=== PATIENT | female | born 1950 | race Caucasian/White ===

== ENCOUNTER 2024-12-31 22:51 | Inpatient (IN) | payer MEDICARE, OTHER ==
[~2024-12-31] VITALS: Ht 154.9 cm; Wt 90.7 kg
[2024-12-31 23:58] LABS: BASOPHILS # (AUTO) 0.1 K/uL (0.0-0.2); BASOPHILS % (AUTO) 1.5 % (0.0-2.0); EOSINOPHILS # (AUTO) 0.2 K/uL (0.0-0.7); EOSINOPHILS % (AUTO) 4.1 % (0.0-6.0); HEMATOCRIT 50 % (33-45); HEMOGLOBIN 16.6 g/dL (11.5-14.8); LYMPHOCYTES # (AUTO) 1.6 K/uL (0.8-4.8); LYMPHOCYTES % (AUTO) 36.3 % (20.0-44.0); MEAN CORPUSCULAR HEMOGLOBIN 32 PG (26.0-33.0); MEAN CORPUSCULAR HGB CONC 33 g/dl (31.0-36.0); MEAN CORPUSCULAR VOLUME 95 fL (82-100); MONOCYTES # (AUTO) 0.7 K/uL (0.1-1.30); NEUTROPHILS # (AUTO) 1.9 K/uL (1.8-8.9); NEUTROPHILS % (AUTO) 42.1 % (43.0-81.0); PLATELET COUNT (AUTO) 314 K/uL (150-450); RED BLOOD CELL COUNT(AUTO) 5.23 MIL/uL (4.0-5.2); RED CELL DISTRIBUTION WIDTH 15.4 % (11.5-15.0); WHITE BLOOD COUNT (AUTO) 4.5 K/uL (4.3-11.0)
[2025-01-01 00:09] LABS: CALCIUM, SERUM 9.6 mg/dL (8.5-10.1); CARBON DIOXIDE 24 mmol/L (21-32); CHLORIDE 105 mmol/L (98-107); CREATININE 0.9 mg/dL (0.6-1.3); GLUCOSE 107 mg/dL (74-106); POTASSIUM 3.5 mmol/L (3.5-5.1); SODIUM SERUM 143 mmol/L (136-145); UREA NITROGEN, BLOOD 12 mg/dL (7-18)
[2025-01-01 00:15] LABS: ALANINE AMINOTRANSFERASE 27 U/L (12-78); ALBUMIN 3.1 g/dL (3.4-5.0); ALCOHOL, BLOOD < 3 mg/dL (0-10); ALKALINE PHOSPHATASE 68 U/L (46-116); ASPARTATE AMINOTRANSFERASE 26 U/L (15-37); BILIRUBIN,DIRECT 0.3 mg/dL (0.0-0.2); BILIRUBIN,TOTAL 0.7 mg/dL (0.2-1.0); TOTAL PROTEIN, SERUM 8.1 g/dL (6.4-8.2)
[2025-01-01 00:16] LABS: ACETAMINOPHEN <10 ug/ml (10-30); SALICYLATE 2.7 mg/dL (2.8-20.0)
[2025-01-01 00:43] LABS: LYMPHOCYTES % (MANUAL) 36 % (16-48)
[2025-01-01 00:44] LABS: EOSINOPHILS % (MANUAL) 2 % (0-4); MONOCYTES % (MANUAL) 13 % (0-11.0); NEUTROPHILS % (MANUAL) 42 (42-76)
[2025-01-01 00:45] LABS: PLATELET ESTIMATE ADEQUATE
[2025-01-01 01:01] LABS: APPEARANCE,URINE SLIGHTLY CLOUDY (CLEAR); BILIRUBIN,URINE 2+ (NEGATIVE); BLOOD, URINE TRACE Ery/uL (NEGATIVE); COLOR,URINE DARK YELLOW (YELLOW); KETONES,URINE 1+ mg/dL (NEGATIVE); LEUKOCYTE ESTERASE ,URINE 2+ (NEGATIVE); NITRITE, URINE NEGATIVE (NEGATIVE); PROTEIN,URINE TRACE mg/dl (NEGATIVE); UGLUCOSE NEGATIVE (NEGATIVE)
[2025-01-01 01:09] LABS: ADD URINE CULTURE YES; BACTERIA,URINE Many /HPF (None Seen); WBC,URINE 81-100 /HPF (0-3)
[2025-01-01 01:10] LABS: SQUAMOUS EPITHELIAL CELL,UR Many /HPF (None Seen)
[2025-01-01 01:11] LABS: AMPHETAMINE, URINE NEGATIVE (NEGATIVE); BARBITURATE, URINE NEGATIVE (NEGATIVE); BENZODIAZEPINE, URINE NEGATIVE (NEGATIVE); CANNABINOID, URINE NEGATIVE (NEGATIVE); COCCAINE, URINE NEGATIVE (NEGATIVE); OPIATE, URINE NEGATIVE (NEGATIVE); PHENCYCLIDINE SCREEN,URINE NEGATIVE (NEGATIVE)
[2025-01-01 01:12] LABS: CALCIUM OXALATE CRYSTALS,UR Rare /HPF (None Seen)
[2025-01-01 01:14] LABS: MUCUS,URINE Many /LPF (None Seen)
[2025-01-01] MEDS ORDERED: NITROFURANTOIN/MONOHYDRATE MACROCRYSTALS 100 MG CAPSULE ONE (01:57)
[2025-01-01] MEDS: NITROFURANTOIN/MONOHYDRATE MACROCRYSTALS 100 MG CAPSULE PO ONE (02:02)
[2025-01-01] MEDS ORDERED: QUET25TA PO (03:17)
[2025-01-01] MEDS ORDERED: ASCO500C18 PO (03:17)
[2025-01-01] MEDS ORDERED: ERGO500040 PO (03:17)
[2025-01-01] MEDS ORDERED: MIRT7.5T10 PO (03:17)
[2025-01-01] MEDS ORDERED: MULT-213 PO (03:17)
[2025-01-01] MEDS ORDERED: AMIN30LI2 PO (03:17)
[2025-01-01] MEDS ORDERED: AMLO-213 PO (03:17)
[2025-01-01] MEDS ORDERED: ZOLPIDEM TARTRATE 5 MG TABLET PO PRN ×2 (04:00)
[2025-01-01] MEDS ORDERED: ACETAMINOPHEN 325 MG TABLET PO PRN (04:00)
[2025-01-01] MEDS ORDERED: MAGNESIUM HYDROXIDE 30 ML UDC PO PRN (04:00)
[2025-01-01] MEDS ORDERED: MAG HYDROX/AL HYDROX/SIMETH 30 ML UDC PO PRN (04:00)
[2025-01-01] MEDS: BLOOD SUGAR DIAGNOSTIC 1 EACH STRIP IN ONE (04:31)
[2025-01-01] MEDS ORDERED: Z GUARD REMEDY 4 OZ OINT TP PRN (05:00)
[2025-01-01 08:00] VITALS: BP 144/50; TEMP 97.9; O2SAT 96
[2025-01-01] MEDS: ENSURE ENLIVE CHOC 237 ML CAN PO SCH (09:26)
[2025-01-01] MEDS: AMLODIPINE BESYLATE 10 MG TABLET PO SCH (14:30)
[2025-01-01] MEDS: SULFAMETH/TRIMETH 800/160 MG 1 UDTAB TABLET PO SCH (14:30)
[2025-01-01 16:00] VITALS: BP 124/68; TEMP 97.9; O2SAT 94
[2025-01-02] MEDS: DIVALPROEX SODIUM 125 MG TABLET.DR PO SCH (08:45)
[2025-01-02] MEDS: ASCORBIC ACID 500 MG TABLET PO SCH (08:46)
[2025-01-02] MEDS: OLANZAPINE 2.5 MG TABLET PO SCH ×2 (08:46→21:00)
[2025-01-02] MEDS: MULTIVIT W/MINERALS 1 TAB TABLET PO SCH (08:46)
[2025-01-03] MEDS ORDERED: CEFTRIAXONE 1 G VIAL IM SCH (14:00)
[2025-01-03] MEDS: CEFTRIAXONE 1 G VIAL IM SCH (16:08)
[2025-01-04 08:00] VITALS: BP 136/67; TEMP 97.8; O2SAT 97
[2025-01-04 16:00] VITALS: BP 125/64; TEMP 97.8; O2SAT 99
[2025-01-04] MEDS: OLANZAPINE 2.5 MG TABLET PO ONE (18:15)
[2025-01-04] MEDS: OLANZAPINE 10 MG VIAL IM PRN (18:26)
[2025-01-04] MEDS: OLANZAPINE 10 MG VIAL IM ONE (18:27)
[2025-01-04] MEDS: OLANZAPINE 2.5 MG TABLET PO SCH (21:00)
[2025-01-05 08:00] VITALS: BP 131/80; TEMP 98.7; O2SAT 98
[2025-01-05 16:00] VITALS: BP 103/49; TEMP 97.8; O2SAT 97
[2025-01-05] MEDS: OLANZAPINE 2.5 MG TABLET PO SCH (20:33)
[2025-01-06 08:00] VITALS: BP 126/61; TEMP 97.9; O2SAT 96
[2025-01-06] MEDS: OLANZAPINE 10 MG VIAL IM PRN (10:10)
[2025-01-06 16:00] VITALS: BP 128/60; TEMP 98.1; O2SAT 96
[2025-01-06 20:00] VITALS: BP 118/73; TEMP 98.8; O2SAT 95
[2025-01-06] MEDS: MIRTAZAPINE SOLUTAB 15 MG/UDTABLET TAB.RAPDIS PO SCH (21:02)
[2025-01-07 08:00] VITALS: BP 114/76; TEMP 97.8; O2SAT 98
[2025-01-07 16:00] VITALS: BP 120/77; TEMP 98; O2SAT 96
[2025-01-07 20:00] VITALS: BP 119/76; TEMP 98; O2SAT 95
[2025-01-07] MEDS: OLANZAPINE 2.5 MG TABLET PO SCH (20:46)
[2025-01-07] MEDS: OLANZAPINE 10 MG VIAL IM PRN (20:47)
[2025-01-08 08:00] VITALS: BP 148/67; TEMP 97.8; O2SAT 96
[2025-01-08 16:00] VITALS: BP 108/66; TEMP 98.7; O2SAT 94
[2025-01-09 08:00] VITALS: BP 106/78; TEMP 97.6; O2SAT 94
[2025-01-09 16:00] VITALS: BP 95/65; TEMP 98.3; O2SAT 98
[2025-01-10 08:00] VITALS: BP 119/79; TEMP 98.6; O2SAT 97
[2025-01-10 15:44] VITALS: BP 114/74; TEMP 98.6; O2SAT 98
[2025-01-10] MEDS: OLANZAPINE 2.5 MG TABLET PO SCH (21:00)
[2025-01-10] MEDS: OLANZAPINE 10 MG VIAL IM PRN (21:49)
[2025-01-11 08:00] VITALS: BP 114/78; TEMP 97.8; O2SAT 98
[2025-01-11 16:00] VITALS: BP 99/59; TEMP 98.3; O2SAT 96
[2025-01-12 16:28] VITALS: BP 92/67; TEMP 98.6; O2SAT 97
[2025-01-12 18:45] LABS: BASOPHILS % (AUTO) 0.7 % (0.0-2.0); EOSINOPHILS # (AUTO) 0.3 K/uL (0.0-0.7); EOSINOPHILS % (AUTO) 5.9 % (0.0-6.0); HEMATOCRIT 43 % (33-45); HEMOGLOBIN 14.8 g/dL (11.5-14.8); LYMPHOCYTES # (AUTO) 1.5 K/uL (0.8-4.8); LYMPHOCYTES % (AUTO) 30.1 % (20.0-44.0); MEAN CORPUSCULAR HEMOGLOBIN 33 PG (26.0-33.0); MEAN CORPUSCULAR HGB CONC 34 g/dl (31.0-36.0); MEAN CORPUSCULAR VOLUME 95 fL (82-100); MONOCYTES # (AUTO) 0.9 K/uL (0.1-1.30); MONOCYTES % (AUTO) 17.5 % (2.0-12.0); NEUTROPHILS # (AUTO) 2.3 K/uL (1.8-8.9); NEUTROPHILS % (AUTO) 45.8 % (43.0-81.0); PLATELET COUNT (AUTO) 260 K/uL (150-450); RED BLOOD CELL COUNT(AUTO) 4.52 MIL/uL (4.0-5.2); RED CELL DISTRIBUTION WIDTH 15.5 % (11.5-15.0)
[2025-01-12 18:59] LABS: CALCIUM, SERUM 8.7 mg/dL (8.5-10.1); CREATININE 1.1 mg/dL (0.6-1.3); POTASSIUM 3.4 mmol/L (3.5-5.1)
[2025-01-12 20:19] LABS: LYMPHOCYTES % (MANUAL) 37 % (16-48); MONOCYTES % (MANUAL) 11 % (0-11.0); NEUTROPHILS % (MANUAL) 46 (42-76)
[2025-01-12 20:20] LABS: EOSINOPHILS % (MANUAL) 6 % (0-4); PLATELET ESTIMATE ADEQUATE
[2025-01-12] MEDS: OLANZAPINE 10 MG VIAL IM ONE (22:18)
[2025-01-13 07:33] LABS: ALBUMIN 2.5 g/dL (3.4-5.0); BILIRUBIN,TOTAL 0.6 mg/dL (0.2-1.0); CALCIUM, SERUM 8.8 mg/dL (8.5-10.1); CREATININE 0.9 mg/dL (0.6-1.3); POTASSIUM 3.3 mmol/L (3.5-5.1); TOTAL PROTEIN, SERUM 6.9 g/dL (6.4-8.2)
[2025-01-13 08:00] VITALS: BP 100/60; TEMP 98; O2SAT 98
[2025-01-13] MEDS: POTASSIUM CHLORIDE 20 MEQ TAB.PRT.SR PO SCH (10:00)
[2025-01-13] MEDS: OLANZAPINE 10 MG VIAL IM ONE ×2 (10:53→22:46)
[2025-01-13 16:00] VITALS: BP 93/62; TEMP 97.7; O2SAT 98
[2025-01-13 20:00] VITALS: BP 100/72; TEMP 97.7; O2SAT 95
[2025-01-13 20:52] VITALS: BP 100/72; TEMP 97.7; O2SAT 95
[2025-01-14 08:00] VITALS: BP 112/75; TEMP 97.7; O2SAT 96
[2025-01-14 08:09] LABS: CALCIUM, SERUM 9.1 mg/dL (8.5-10.1); CREATININE 0.9 mg/dL (0.6-1.3); MAGNESIUM 2.2 mg/dL (1.8-2.4); PHOSPHORUS 4.5 mg/dL (2.5-4.9); POTASSIUM 3.8 mmol/L (3.5-5.1)
[2025-01-14 16:00] VITALS: BP 119/76; TEMP 97.6; O2SAT 98
[2025-01-14 20:06] VITALS: BP 105/76; TEMP 97.6; O2SAT 100
[2025-01-14] MEDS: OLANZAPINE 10 MG VIAL IM ONE (22:40)
[2025-01-15 08:00] VITALS: BP 120/88; TEMP 97.9; O2SAT 96
[2025-01-15 10:09] VITALS: BP 98/77; TEMP 97.8; O2SAT 96
[2025-01-15] MEDS: OLANZAPINE 10 MG VIAL IM ONE (10:09)
[2025-01-15 16:00] VITALS: BP 110/50; TEMP 98; O2SAT 98
[2025-01-15 20:21] VITALS: BP 132/81; TEMP 98.3; O2SAT 96
[2025-01-16 08:00] VITALS: BP 106/81; TEMP 97.9; O2SAT 94
[2025-01-16 16:07] VITALS: BP 94/70; TEMP 97.9; O2SAT 98
[2025-01-17 08:00] VITALS: BP 119/65; TEMP 97.8; O2SAT 96
[2025-01-17 15:15] VITALS: BP 127/76; TEMP 98; O2SAT 98
[2025-01-17 20:14] VITALS: BP 101/63; TEMP 98; O2SAT 97
[2025-01-18 08:00] VITALS: BP 124/51; TEMP 97.6; O2SAT 98
[2025-01-18 16:00] VITALS: BP 105/74; TEMP 98.7; O2SAT 98
[2025-01-18 19:59] VITALS: BP 112/70; TEMP 98.3; O2SAT 98
[2025-01-19 08:00] VITALS: BP 104/68; TEMP 98.6; O2SAT 98
== END 2025-01-19 14:00 | DRG 885 ==
LOC: ER 23:04 → GPS 01-01 02:41
PROVIDERS: ADMIT Psychiatry & Neurology Psychiatry
DX: F29 Unspecified psychosis not due to a substance or known physiological condition (principal); N39.0 Urinary tract infection, site not specified; G93.40 Encephalopathy, unspecified; I10 Essential (primary) hypertension; E66.01 Morbid (severe) obesity due to excess calories; F31.9 Bipolar disorder, unspecified; Z88.0 Allergy status to penicillin; F39 Unspecified mood [affective] disorder; F20.0 Paranoid schizophrenia; Z91.199 Patient's noncompliance with other medical treatment and regimen due to unspecified reason; Z73.6 Limitation of activities due to disability; Z68.37 Body mass index [BMI] 37.0-37.9, adult; B96.89 Other specified bacterial agents as the cause of diseases classified elsewhere; G31.84 Mild cognitive impairment of uncertain or unknown etiology; Z20.822 Contact with and (suspected) exposure to COVID-19
CPT/HCPCS: 36415; 80048-TC; 80053-TC; 80076-TC; 81001; 83735-TC; 84100-TC; 85025-TC; 87081-TC; 87086-TC; G0480; J0696; J3490